=== PATIENT | male | born 1940 ===

== ENCOUNTER 2021-08-09 08:50 | Inpatient (IN) ==
[~2021-08-09 08:50] MED LIST: Buffered Lidocaine 1% SYRIN 1 ml INTRADERM ONE; Dexamethasone IV 4 MG/ML VIAL 1 ml VIAL IV SLOW PU ONE; Famotidine IV 10 MG/ML 2 ml VIAL (20 mg) IV ONE; Lactated Ringers 1000 ml BAG 1,000 ML IV SCH
[2021-08-09] MEDS ORDERED: ceFAZolin 2 GM PREMIX 2 GM/50 ML BAG ONE (09:38)
[2021-08-09] MEDS ORDERED: Dexamethasone IV 4 MG/ML VIAL 1 ml VIAL ONE ×2 (10:51→12:34)
[2021-08-09] MEDS ORDERED: Famotidine IV 10 MG/ML 2 ml VIAL (20 mg) ONE (10:51)
[2021-08-09] MEDS ORDERED: Ropivacaine 5 MG/ML 20 ML VIAL 0.5% (100 MG) ONE (11:12)
[2021-08-09] MEDS ORDERED: fentaNYL 100 mcg/2 ml 50 MCG/ML VIAL ONE ×2 (11:14→12:49)
[2021-08-09] MEDS ORDERED: Midazolam 2 mg/2 ml VIAL 1 mg/ml 2 ml VIAL (2 mg) ONE (11:14)
[2021-08-09] MEDS ORDERED: ROPIVACAINE 5 MG/ML 30 ML BTL (0.5%) ONE (11:23)
[2021-08-09 11:29] LABS: INR 1.17 (0.86-1.15)
[2021-08-09] MEDS ORDERED: Morphine 4 MG/ML VIAL (1 ml) IV PRN (11:59)
[2021-08-09] MEDS ORDERED: fentaNYL 100 mcg/2 ml 50 MCG/ML VIAL IV PRN (11:59)
[2021-08-09] MEDS ORDERED: Prochlorperazine 5 mg/ml 2 ml VIAL (10 mg) IV PRN (11:59)
[2021-08-09] MEDS ORDERED: Naloxone 0.4 mg VIAL 0.4 mg/ml 1 ml VIAL IV PRN (11:59)
[2021-08-09] MEDS ORDERED: Lidocaine 2% PF 5 ML VIAL ONE (12:34)
[2021-08-09] MEDS ORDERED: Propofol 10 MG/ML 20 ML BTL ONE (12:34)
[2021-08-09] MEDS ORDERED: Ondansetron 4 mg VIAL 2 MG/ML 2 ml VIAL ONE (12:34)
[2021-08-09] MEDS ORDERED: Phenylephrine IV 10 MG/ML 1 ml VIAL ONE (12:34)
[2021-08-09] MEDS ORDERED: HYDROmorphone 0.5 MG/0.5 ML SYRINGE ONE ×2 (12:48→13:29)
[2021-08-09] MEDS ORDERED: diPHENhydraMINE IV 50 MG/ML 1 ml VIAL (BENADRYL) IV PRN (12:56)
[2021-08-09] MEDS ORDERED: Ondansetron ODT 4 mg TAB 4 MG TAB PO PRN (12:56)
[2021-08-09] MEDS ORDERED: Magnesium Hydroxide LIQ 30 ML UDC PO PRN (12:56)
[2021-08-09] MEDS ORDERED: diPHENhydraMINE 25 mg TAB PO PRN (12:56)
[2021-08-09] MEDS ORDERED: Lactulose 30 ml UDC PO PRN (12:56)
[2021-08-09] MEDS ORDERED: Ondansetron 4 mg VIAL 2 MG/ML 2 ml VIAL IV PRN (12:56)
[2021-08-09] MEDS ORDERED: ceFAZolin 1 GM ADVAN 1 GM in NS 0.9% 50 ML 50 ML IVPB SCH (13:00)
[2021-08-09] MEDS ORDERED: Acetaminophen IV 1 GM/100ML 100 ML IV ONE (13:28)
[2021-08-09] MEDS: Lactated Ringers 1000 ml BAG 1,000 ML IV SCH (17:41)
[2021-08-09] MEDS: ceFAZolin 1 GM ADVAN 1 GM in NS 0.9% 50 ML 50 ML IVPB SCH (20:26)
[2021-08-09] MEDS: Magnesium Hydroxide LIQ 30 ML UDC PO SCH (20:41)
[2021-08-09] MEDS ORDERED: TERAZOSIN 5 MG PO SCH (21:00)
[2021-08-10] MEDS: ceFAZolin 1 GM ADVAN 1 GM in NS 0.9% 50 ML 50 ML IVPB SCH ×2 (05:08→12:23)
[2021-08-10] MEDS: Lactated Ringers 1000 ml BAG 1,000 ML IV SCH (05:25)
[2021-08-10 05:38] LABS: Hematocrit 30 % (42-52); Hemoglobin 10.2 g/dL (14.0-18.0); Mean Platelet Volume 9.1 fL (7.4-10.4); Platelet Count 173 10^3/uL (150-450)
[2021-08-10 05:55] LABS: Calcium 8.8 mg/dL (8.6-10.3); Potassium 4.8 mmol/L (3.5-5.0); eGFR CKD-EPI 35.9 (>60)
[2021-08-10] MEDS: Magnesium Hydroxide LIQ 30 ML UDC PO SCH (08:54)
[2021-08-10] MEDS ORDERED: Lactated Ringers 1000 ml BAG 1,000 ML IV SCH (09:00)
[2021-08-10] MEDS ORDERED: Vitamin THERAPEUTIC TAB PO SCH (09:00)
[2021-08-10 11:20] VITALS: BP 132/55
== END 2021-08-10 14:45 | disposition home or self-care (01) | DRG 470 ==
LOC: AA 08:50 → SSU 17:15
PROVIDERS: ADMIT Orthopaedic Surgery Adult Reconstructive Orthopaedic Surgery; ATTEND Orthopaedic Surgery Adult Reconstructive Orthopaedic Surgery